=== PATIENT | male | born 1970 | race Caucasian/White ===

== ENCOUNTER 2019-08-25 12:03 | Emergency (ER) | payer MEDICARE, MEDICAID ==
[~2019-08-25] VITALS: Ht 175.3 cm; Wt 95.0 kg
[~2019-08-25 12:03] MED LIST: ATOR10TA69 PO; HYDR-3162 PO; IBUP-2029 PO; KEPP500 PO
[2019-08-25 12:22] VITALS: BP 118/76
[2019-08-25 14:13] LABS: CLARITY URINE CLEAR (CLEAR); COLOR URINE YELLOW (YELLOW); KETONES URINE NEGATIVE (NEGATIVE); LEUKOCYTE ESTERASE URINE NEGATIVE (NEGATIVE); NITRITE URINE NEGATIVE (NEGATIVE); OCCULT BLOOD URINE NEGATIVE (NEGATIVE); PROTEIN URINE NEGATIVE (NEGATIVE); SPECIFIC GRAVITY URINE 1.015 (1.005-1.030); UROBILINOGEN URINE 0.2 E.U./dL (0.2-1.0)
== END 2019-08-25 14:47 | disposition home or self-care (01) ==
LOC: ER 12:03
DX: M54.5 Low back pain (principal); G89.29 Other chronic pain; E78.00 Pure hypercholesterolemia, unspecified
CPT/HCPCS: 81003; 99282

== ENCOUNTER 2023-12-16 11:25 | Emergency (ER) | payer MEDICARE, MEDICAID ==
[~2023-12-16] VITALS: Ht 175.3 cm; Wt 93.0 kg
[2023-12-16 11:33] VITALS: BP 132/89; TEMP 98; O2SAT 96
[2023-12-16 11:44] VITALS: PULSE 94; RESP 18
[2023-12-16] MEDS ORDERED: IBUP-2029 MT (14:13)
== END 2023-12-16 14:30 | disposition home or self-care (01) ==
LOC: ER 11:25
DX: M25.511 Pain in right shoulder (principal); M25.551 Pain in right hip; E78.00 Pure hypercholesterolemia, unspecified; Z98.890 Other specified postprocedural states
CPT/HCPCS: 73030; 73502; 99284

== ENCOUNTER 2024-09-19 07:14 | Emergency (ER) | payer MEDICARE, MEDICAID ==
[~2024-09-19] VITALS: Ht 175.3 cm; Wt 90.7 kg
[~2024-09-19 07:14] MED LIST changes: +IBUP-2029 MT
[2024-09-19 07:26] VITALS: O2SAT 98
[2024-09-19] MEDS ORDERED: AM250 MT (07:56)
[2024-09-19] MEDS: KETOROLAC 30MG/ML VIAL IM ONE (08:13)
[2024-09-19] MEDS ORDERED: ACET-2708 MT (08:38)
[2024-09-19 08:50] LABS: BASOPHILS % 0.4 % (0.0-2.0); EOSINOPHILS % 2.3 % (0.0-5.0); HEMATOCRIT. 48.7 % (42.0-52.0); HEMOGLOBIN. 16.2 g/dL (14.0-18.0); LYMPHOCYTES % 15.4 % (20.0-50.0); MEAN CORPUSCULAR HEMOGLOBIN 29.3 pg (28.0-32.0); MEAN CORPUSCULAR HGB CONC 33.2 g/dL (31.0-37.0); MEAN CORPUSCULAR VOLUME 88.4 fL (80.0-94.0); MONOCYTES % 4.7 % (2.0-8.0); NEUTROPHILS % 77.2 % (40.0-76.0); PLATELET 160 x1000/uL (130-400); RED BLOOD CELL COUNT 5.51 mill/uL (4.7-6.1); RED CELL DISTRIBUTION WIDTH 12.9 % (11.6-14.6); WHITE BLOOD COUNT 10.1 x1000/uL (4.5-11.0)
[2024-09-19 08:56] LABS: CHLORIDE 102 mEq/L (98-107); POTASSIUM 4.4 mEq/L (3.5-5.1); SODIUM 135 mEq/L (136-145)
[2024-09-19 08:57] LABS: CARBON DIOXIDE 24 mEq/L (21-32)
[2024-09-19 08:58] LABS: CALCIUM 9.9 mg/dL (8.7-10.4)
[2024-09-19 09:03] LABS: GLUCOSE 282 mg/dL (70-105); UREA NITROGEN BLOOD 14 mg/dL (9-23)
[2024-09-19 09:04] LABS: ALANINE AMINOTRANSFERASE 47 IU/L (10-49); ALBUMIN 4.6 g/dL (3.2-4.8); ASPARTATE AMINOTRANSFERASE 26 IU/L (<34)
[2024-09-19 09:05] LABS: BILIRUBIN TOTAL 0.6 mg/dL (0.1-1.0)
[2024-09-19 09:26] VITALS: BP 130/78; PULSE 91; RESP 16; TEMP 36.7; O2SAT 98
== END 2024-09-19 09:34 | disposition home or self-care (01) ==
LOC: ER 07:14
DX: K08.89 Other specified disorders of teeth and supporting structures (principal); E78.00 Pure hypercholesterolemia, unspecified; Z79.899 Other long term (current) drug therapy; Z98.890 Other specified postprocedural states
CPT/HCPCS: 99283; 80053; 85025; 36415; 96372; J1885